=== PATIENT | male | born 2000 | race Caucasian/White ===

== ENCOUNTER 2024-12-31 20:33 | Emergency (ER) | payer MEDICAID ==
[~2024-12-31] VITALS: Ht 180.3 cm; Wt 113.0 kg
[~2024-12-31 20:33] MED LIST: ONDA4TAB50 MT
[2024-12-31 20:53] VITALS: TEMP 36.7; O2SAT 99
[2024-12-31 21:28] LABS: BASOPHILS % 0.5 % (0.0-2.0); EOSINOPHILS % 0.0 % (0.0-5.0); HEMATOCRIT. 41.9 % (42.0-52.0); HEMOGLOBIN. 14.1 g/dL (14.0-18.0); LYMPHOCYTES % 13.2 % (20.0-50.0); MEAN PLATELET VOLUME 8.0 fl (7.4-10.4); MONOCYTES % 3.5 % (2.0-8.0); NEUTROPHILS % 82.8 % (40.0-76.0); PLATELET 362 x1000/uL (130-400); RED BLOOD CELL COUNT 5.23 mill/uL (4.7-6.1); RED CELL DISTRIBUTION WIDTH 14.6 % (11.6-14.6)
[2024-12-31 21:42] LABS: CLARITY URINE TURBID (CLEAR); COLOR URINE DARK YELLOW (YELLOW); GLUCOSE URINE NEGATIVE (NEGATIVE); KETONES URINE 2+ (NEGATIVE); LEUKOCYTE ESTERASE URINE NEGATIVE (NEGATIVE); NITRITE URINE NEGATIVE (NEGATIVE); OCCULT BLOOD URINE NEGATIVE (NEGATIVE); PH URINE 6.0 (4.5-8.0); PROTEIN URINE 1+ (NEGATIVE); SPECIFIC GRAVITY URINE 1.028 (1.005-1.030); UROBILINOGEN URINE 1.0 E.U./dL (0.2-1.0)
[2024-12-31 21:46] LABS: CREATININE 0.9 mg/dL (0.6-1.3); UREA NITROGEN BLOOD 9 mg/dL (9-23)
[2024-12-31 21:48] LABS: ASPARTATE AMINOTRANSFERASE 27 IU/L (<34); BILIRUBIN DIRECT 0.3 mg/dL (<=3.0); BILIRUBIN TOTAL 1.2 mg/dL (0.1-1.0); PROTEIN TOTAL 7.3 g/dL (6.0-8.3)
[2024-12-31 22:11] LABS: AMORPHOUS SEDIMENT URINE 1+ /lpf; BACTERIA URINE 2+; RBC URINE 0-2 /hpf (0-2); SQUAMOUS EPITHELIAL CELL URINE FEW /lpf (RARE/1+); WBC URINE 0-2 /hpf (0-2)
[2024-12-31] MEDS: KETOROLAC 15MG/ML VIAL IV NR (23:23)
[2024-12-31] MEDS: ONDANSETRON HCL 4MG/2ML INJ IV NR (23:23)
[2024-12-31] MEDS: SODIUM CHLORIDE 0.9% 1,000 ML IV ONE (23:23)
[2025-01-01] MEDS ORDERED: ONDA4TAB50 MT (01:07)
[2025-01-01] MEDS ORDERED: FAMO-135 MT (01:47)
[2025-01-01 02:04] VITALS: BP 138/87; PULSE 67; RESP 18; O2SAT 99
== END 2025-01-01 02:05 | disposition home or self-care (01) ==
LOC: ER 20:33
DX: K52.9 Noninfective gastroenteritis and colitis, unspecified (principal); F12.90 Cannabis use, unspecified, uncomplicated; F10.90 Alcohol use, unspecified, uncomplicated; E87.6 Hypokalemia; Z90.49 Acquired absence of other specified parts of digestive tract; Y90.9 Presence of alcohol in blood, level not specified
CPT/HCPCS: 99284; 96374; 96361; 96375; 80076; 80048; 81003; 83690; 85025; 36415; J1885; J2405